=== PATIENT | female | born 1990 | race Caucasian/White ===

== ENCOUNTER 2023-05-11 18:14 | Emergency (ER) | payer MEDICAID, SELFPAY ==
[2023-05-11 18:20] VITALS: BP 125/86; PULSE 97; RESP 16; TEMP 36.9; O2SAT 99; BMI 23.5
--- NOTE | 2023-05-11 18:41 | W.ED.PSYCHS ---
HPI - Psych General: Chief Complaint: Psychiatric Symptoms Stated Complaint: MHE Time Seen by Provider: 05/11/23 18:27 Source: patient Mode of arrival: ambulatory Limitations: no limitations History of Present Illness: 33-year-old female who has a history of depression states she has been having a lot more depression and stress over the last 3 weeks states she had seen a psychiatrist at [facility] and did not like them she has been on multiple different medications states today she does feels like she is at her last resort she had thoughts of laying in the road states that she does not believe she did actually do it states that she wants to get help she appears very anxious here. Associated symptoms: Reports depression and suicidal ideation Review of Systems Const: Denies: fever(s), chills, body aches or change in appetite Eyes: Denies: blurry vision or eye discomfort ENMT: Denies: throat pain or dental pain Card: Denies: chest pain Resp: Denies: dyspnea GI: Denies: abdominal pain, nausea, vomiting or diarrhea Musc: Denies: neck pain or back pain Skin/Breast: Denies: rash Neuro: Denies: headache(s) Psych: Reports: anxiety, depression and suicidal ideation FOR[facility] ED Female Reproductive History: Date of last menstrual period: 04/14/23 Physical Exam Const: COMMON NORMALS: no acute distress, patient oriented x3 and healthy appearing HENMT: COMMON NORMALS: normocephalic and atraumatic HEAD & SCALP: normocephalic and atraumatic Eye: COMMON NORMALS: Equal, round and reactive pupils present and EOMs intact bilaterally PUPIL: Yes Equal, round and reactive pupils present Neck/C-Spine: COMMON NORMALS: full ROM and supple Chest: COMMONS NORMALS: normal inspection of the chest Resp: COMMON NORMALS: normal respiratory effort Cardio: COMMON NORMALS: regular rate, regular rhythm and No murmurs present (Cardio) RATE: regular rate RHYTHM: regular rhythm Extremity: COMMON NORMALS: normal to inspection and full ROM Neuro: COMMON NORMALS: patient oriented x3, moves all extremities and no focal motor deficits Psych: COMMON NORMALS: mental status grossly normal, Normal thought process present and cooperative MOOD & AFFECT: Yes depressed mood THOUGHT PROCESS: Normal thought process present Skin: COMMON NORMALS: no rashes or lesions noted and no wounds GENERAL SKIN EXAM: no rashes or lesions noted Course Vital Signs: Vital signs: Vital Signs Temperature 98.4 F 05/11/23 18:20 Pulse Rate 97 05/11/23 18:20 Respiratory Rate 16 05/11/23 18:20 Blood Pressure 125/86 05/11/23 18:20 Pulse Oximetry 99 05/11/23 18:20 Oxygen Delivery Me thod Room Air 05/11/23 18:20 MDM - Psych Medical Decision Making Patient presents here with depression she had suicidal thoughts she has no specific plan at this time patient initially went to be admitted voluntarily but she changed her mind I felt that she was safe to be discharged hide patient evaluated by her psychiatrist Dr. Rodriguez who also agrees that she is safe for discharge and does not have to hold against her will I did inform her if she changes her mind or worsens she is to return she understands agrees to plan. Medical Records I reviewed the patient's medical records. Lab Data I reviewed the patient's lab results. 05/11/23 19:42 05/11/23 19:42 Laboratory Results WBC 10.11 10^3/uL (3.29-11.43) 05/11/23 19:42 RBC 4.79 10^6/uL (3.85-5.65) 05/11/23 19:42 Hgb 15.50 g/dL (11.27-16.99) 05/11/23 19:42 Hct 44.6 % (36-47) 05/11/23 19:42 MCV 93.1 fl (85-98) 05/11/23 19:42 MCH 32.4 pg (27-33) 05/11/23 19:42 MCHC 34.8 g/dL (30-55) 05/11/23 19:42 RDW 12.1 % (12.1-15.1) 05/11/23 19:42 Plt Count 227 10^3/cmm (157-399) 05/11/23 19:42 MPV 11.0 fL (7.4-10.4) H 05/11/23 19:42 Neut % (Auto) 58.8 % 05/11/23 19:42 Lymph % (Auto) 31.1 % 05/11/23 19:42 Citrus % (Auto) 6.4 % 05/11/23 19:42 Eos % (Auto) 2.9 % 05/11/23 19:42 Baso % (Auto) 0.5 % 05/11/23 19:42 Neut # (Auto) 5.95 10^3/uL (1.8-7.7) 05/11/23 19:42 Lymph # (Auto) 3.1 10^3/uL (0.8-4.8) 05/11/23 19:42 Citrus # (Auto) 0.7 10^3/uL (0.2-0.9) 05/11/23 19:42 Eos # (Auto) 0.3 10^3/uL (0.0-0.8) 05/11/23 19:42 Baso # (Auto) 0.1 10^3/uL (0.0-0.1) 05/11/23 19:42 Nucleated RBC % (auto) 0 % 05/11/23 19:42 Nucleated RBCs # 0.0 /100WBC 05/11/23 19:42 Sodium 139 mmol/L (136-145) 05/11/23 19:42 Potassium 3.9 mmol/L (3.5-5.1) 05/11/23 19:42 Chloride 104 mmol/L (98-107) 05/11/23 19:42 Carbon Dioxide 25 mmol/L (22-29) 05/11/23 19:42 Anion Gap 13.9 (5-19) 05/11/23 19:42 BUN 14 mg/dL (6-20) 05/11/23 19:42 Creatinine 0.7 mg/dL (0.5-0.9) 05/11/23 19:42 GFR Calculation 96.4 mL/min (90-130) 05/11/23 19:42 Glucose 87 mg/dL (65-115) 05/11/23 19:42 Calculated Osmolality 288 mOsm/kg (285-295) 05/11/23 19:42 Calcium 9.8 mg/dL (8.5-10.5) 05/11/23 19:42 Total Bilirubin 0.4 mg/dL (0.15-1.2) 05/11/23 19:42 AST 20 U/L (0-32) 05/11/23 19:42 ALT 28 U/L (0-33) 05/11/23 19:42 Alkaline Phosphatase 67 U/L (35-105) 05/11/23 19:42 Total Protein 7.6 g/dL (6.6-8.7) 05/11/23 19:42 Albumin 4.5 g/dL (3.5-5.2) 05/11/23 19:42 Globulin 3.1 g/dL (1.3-4.6) 05/11/23 19:42 HCG, Qual Negative (Negative) 05/11/23 19:37 Salicylates 0.4 mg/dL (3-10) L 05/11/23 19:42 Urine Opiates Screen Negative ng/mL (Negative) 05/11/23 19:37 Acetaminophen < 5.0 ug/mL (10-30) L 05/11/23 19:42 Ur Barbiturates Screen Negative ng/mL (Negative) 05/11/23 19:37 Ur Phencyclidine Scrn Negative ng/mL (Negative) 05/11/23 19:37 Ur Amphetamines Screen Negative ng/mL (Negative) 05/11/23 19:37 U Benzodiazepines Scrn Negative ng/mL (Negative) 05/11/23 19:37 Urine Cocaine Screen Negative ng/mL (Negative) 05/11/23 19:37 U Marijuana (THC) Screen Positive ng/mL (Negative) H 05/11/23 19:37 Ethyl Alcohol < 10 mg/dL (0-10) 05/11/23 19:42 No radiology studies performed this visit Discharge Plan Discharge Patient Disposition: Home Clinical Impression: Depression Condition: Stable Discharge Orders: Discharge ED (Routine); Ordered 05/11/23 Ordered By: Brice Araiza Discharge Diet: Advance as tolerated Discharge Activity: Resume usual activity Patient Instructions: Depression (ED) Coding Level of Care Code ED [employer] Supervisor for Jasmin Car
[2023-05-11] MEDS: LORazepam 2 mg Tablet PO (19:22)
[2023-05-11 19:52] LABS: Basophils # 0.1 10^3/uL (0.0-0.1); Basophils % 0.5 %; Eosinophils # 0.3 10^3/uL (0.0-0.8); Eosinophils % 2.9 %; Hematocrit 44.6 % (36-47); Lymphocytes # 3.1 10^3/uL (0.8-4.8); Lymphocytes % 31.1 %; Mean Corpuscular HGB Conc 34.8 g/dL (30-55); Mean Corpuscular Hemoglobin 32.4 pg (27-33); Mean Corpuscular Volume 93.1 fl (85-98); Monocytes # 0.7 10^3/uL (0.2-0.9); Monocytes % 6.4 %; Neutrophils # 5.95 10^3/uL (1.8-7.7); Neutrophils % 58.8 %; Nucleated Red Blood Cells % 0 %; Platelet Count 227 10^3/cmm (157-399); Red Blood Count 4.79 10^6/uL (3.85-5.65); Red Cell Distribution Width 12.1 % (12.1-15.1); White Blood Count 10.11 10^3/uL (3.29-11.43)
--- NOTE | 2023-05-11 19:55 | PC.NURSE ---
pt admission pt very anxious. when attempting to change patient into scrubs pt states she would like to leave d/t having to take out her jewelry for her piercings. pt physician notified and dr sams will be consulted.
[2023-05-11 19:58] LABS: HCG Qualitative Urine. Negative (Negative)
[2023-05-11 20:11] LABS: Amphetamines Screen Urine Negative (Negative); Barbiturates Screen Urine Negative (Negative); Benzodiazepines Screen Urine Negative (Negative); Cocaine Screen Urine Negative (Negative); Opiate Screen Urine Negative (Negative); PCP Screen Urine Negative (Negative); THC Screen Urine Positive (Negative)
[2023-05-11 20:12] LABS: Alanine Aminotransferase 28 U/L (0-33); Albumin Level 4.5 g/dL (3.5-5.2); Alkaline Phosphatase 67 U/L (35-105); Anion Gap 13.9 (5-19); Aspartate Amino Transferase 20 U/L (0-32); Blood Urea Nitrogen 14 mg/dL (6-20); Calcium 9.8 mg/dL (8.5-10.5); Carbon Dioxide 25 mmol/L (22-29); Chloride 104 mmol/L (98-107); Globulin 3.1 g/dL (1.3-4.6); Glomerular Filtration Rate 96.4 mL/min (90-130); Glucose 87 mg/dL (65-115); Osmolality Calculated 288 mOsm/kg (285-295); Potassium 3.9 mmol/L (3.5-5.1); Salicylate 0.4 mg/dL (3-10); Sodium 139 mmol/L (136-145); Total Bilirubin 0.4 mg/dL (0.15-1.2); Total Protein 7.6 g/dL (6.6-8.7)
[2023-05-11 20:13] LABS: Acetaminophen < 5.0 ug/mL (10-30); Alcohol Level < 10 mg/dL (0-10)
[2023-05-11 20:34] VITALS: RESP 16
== END 2023-05-11 20:37 | disposition home or self-care (01) ==
LOC: ER 18:43 → NP 20:20
PROVIDERS: Emergency Provider Emergency Medicine
DX: F32.A Depression, unspecified (principal)
CPT/HCPCS: 36415; 80053; 80306; 80307; 81025; 85025; 99283

== ENCOUNTER → 2024-01-24 14:03 | Outpatient (BNVA) | payer MEDICAID, BC, SELFPAY | PROVIDERS: Referring Provider Nurse Practitioner Family; Visit Provider Dermatology | DX: L94.0 Localized scleroderma [morphea] (principal); D23.72 Other benign neoplasm of skin of left lower limb, including hip; D23.71 Other benign neoplasm of skin of right lower limb, including hip; D23.62 Other benign neoplasm of skin of left upper limb, including shoulder; D23.61 Other benign neoplasm of skin of right upper limb, including shoulder; L57.8 Other skin changes due to chronic exposure to nonionizing radiation; D22.5 Melanocytic nevi of trunk | CPT/HCPCS: 99204 ==

== ENCOUNTER → 2024-03-14 13:41 | Outpatient (BNVA) | payer BC, MEDICAID, SELFPAY | PROVIDERS: Visit Provider Podiatrist Foot & Ankle Surgery | DX: S92.352A Displaced fracture of fifth metatarsal bone, left foot, initial encounter for closed fracture (principal); X58.XXXA Exposure to other specified factors, initial encounter | CPT/HCPCS: 73630 ==

== ENCOUNTER 2024-11-06 09:20 | Outpatient (CLI) | payer BC, MEDICAID, SELFPAY ==
--- NOTE | 2024-11-06 | FL_ITS ---
ID barium swallow [id number] REASON FOR EXAM: DYSPHAGIA,PHARYNGEAL FLUOROSCOPY TIME: 2min [id number] # OF SPOT FILMS: Multiple TECHNIQUE: Patient was examined in the upright AP and lateral projection, prone HOLLOWAY, and supine positions. The swallowing of barium was monitored fluoroscopically and recorded with multiple rapid sequence spot films. FINDINGS: The cervical esophagus demonstrated normal motility and anatomy with no extrinsic impingement. There was no penetration of contrast into the laryngeal vestibule and no aspiration. The thoracic esophagus demonstrated no extrinsic mass effect. The motility was normal. There is no hiatal hernia or distal esophageal stricture. No gastroesophageal reflux demonstrated. IMPRESSION: No significant abnormality. MTDD
== END 2024-11-06 09:21 | disposition home or self-care (01) ==
LOC: RAD 09:21
PROVIDERS: Visit Provider Otolaryngology
DX: R13.13 Dysphagia, pharyngeal phase (principal); R07.0 Pain in throat
CPT/HCPCS: 74220

== ENCOUNTER 2024-11-14 08:47 | Outpatient (CLI) | payer BC, MEDICAID, SELFPAY ==
--- NOTE | 2024-11-14 08:54 | MR_ITS ---
WS: [id number] MRI CERVICAL SPINE NONCONTRAST TECHNIQUE: Sagittal T1, T2 and STIR imaging. Axial T2, gradient, and fiesta imaging. CLINICAL INFORMATION: CERVACALGIA COMPARISON: None. FINDINGS: Straightening of the normal cervical lordosis. 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 C2-C3: Normal. C3-C4: Normal C4-C5: Mild facet arthropathy. Spinal canal and foramen are patent. C5-C6: Mild facet arthropathy. Spinal canal and foramen are patent. C6-C7: Mild facet arthropathy. Spinal canal and foramen are patent. C7-T1: Normal. Visualized brain stem structures: Normal. Prevertebral soft tissues: Normal. Small thyroid nodules largest on the RIGHT measuring 4.8 mm MR/MR cervical spin wo con* [id number] IMPRESSION: 1. 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 Recommend further evaluation with MRI head 2. Straightening of the normal cervical lordosis. Cord signal is normal. 3. No central canal stenosis. 4. No significant foraminal narrowing. 5. Mild facet arthropathy C4-C6.
== END 2024-11-14 08:48 | disposition home or self-care (01) ==
LOC: RAD 08:48
PROVIDERS: Visit Provider Nurse Practitioner Family
DX: G93.5 Compression of brain (principal); M47.812 Spondylosis without myelopathy or radiculopathy, cervical region
CPT/HCPCS: 72141

== ENCOUNTER 2024-12-19 12:21 | Outpatient (CLI) | payer BC, MEDICAID, SELFPAY ==
--- NOTE | 2024-12-19 12:31 | MR_ITS ---
WS: [id number] MRI BRAIN WITH AND WITHOUT CONTRAST HISTORY: HEADACHE COMPARISON: 11/14/2024 MRI C-spine. TECHNIQUE: Multiplanar imaging performed through the brain with MultiHance 15 ml's IV. No acute infarcts are seen. Acosta-white matter differentiation is well preserved. No susceptibility artifacts or prior lacunar infarcts. Ventricles and extra-axial spaces are normal. Clivus and pituitary gland are normal. Chiari I malformation. Cerebellar tonsils descend below the foramen magnum. The RIGHT cerebellar tonsil extends approximately 13 mm below the foramen magnum. LEFT cerebellar tonsil 9 mm below the foramen magnum. No dilatation of the fourth ventricle. There is slight kinking of the cervical medullary junction. No edema. Postcontrast images are negative for masses or vascular malformations. Soft tissue nonenhancing nodule in the posterior RIGHT ethmoid air cell. This is probably related to mucous disease and secretions. No air-fluid levels in the sinuses. Mastoid air cells: Normal. Calvarium and scalp: Normal. MR/MR head wo/w con [id number] IMPRESSION: 1. Current 1 malformation. RIGHT cerebellar tonsil extends 13 mm below the for amen magnum. LEFT cerebellar tonsil extends 9 mm below the foramen magnum. 2. No hydrocephalus or prior infarct. 3. No small vessel disease.
[2024-12-19] MEDS: gadobenate dimeglumine 20 mL vial IV (13:17)
== END 2024-12-19 12:22 | disposition home or self-care (01) ==
PROVIDERS: Visit Provider Nurse Practitioner Family
DX: R51.9 Headache, unspecified (principal); J34.89 Other specified disorders of nose and nasal sinuses; Q07.00 Arnold-Chiari syndrome without spina bifida or hydrocephalus
CPT/HCPCS: 70553